=== PATIENT | male | born 1935 | race Caucasian/White ===

== ENCOUNTER 2016-10-18 10:57 | Day surgery (SDC) | payer MEDICARE, BC ==
[2016-10-18 11:11] VITALS: RESP 16
[2016-10-18] MEDS ORDERED: LIDOCAINE HCL 1% MPF SOL ONE (11:22)
[2016-10-18] MEDS: BUPIVACAINE HCL 0.5% MPF 10 ML SOL ONE ×2 (12:21→12:41)
[2016-10-18 13:01] VITALS: BP 126/56; PULSE 60; TEMP 97.9; O2SAT 97
== END 2016-10-18 13:20 | disposition home or self-care (01) | DRG 566 ==
LOC: SURG 10:57
PROVIDERS: ATTEND Podiatrist
DX: M20.41 Other hammer toe(s) (acquired), right foot (principal)
CPT/HCPCS: J2001